=== PATIENT | female | born 1995 | race African-American/Black ===

== ENCOUNTER 2016-05-11 12:24 | Emergency (ER) | payer OTHER ==
[~2016-05-11] VITALS: Ht 175.3 cm; Wt 64.5 kg
[2016-05-11 12:27] VITALS: BP 123/80; PULSE 87; RESP 15; TEMP 98.2; O2SAT 98
--- NOTE | 2016-05-11 14:11 | PD ---
HPI Chief Complaint: Chest Pain Time Seen by Provider: 13:05 Travel History International Travel<30 days: No Contact w/Intl Traveler<30days: No Traveled to known affect area: No History of Present Illness HPI The patient was seen and examined in the presence of the nurse. This patient complains of pain in the left lower chest near her left breast. Duration 3 hours. Severity is mild. In fact is pretty much resolved by the time I see her in the ER. No shortness of breath or fever or productive cough. PFSH Past Medical History Medical History: Denies Significant Hx ?: Unknown Past Surgical History Surgical History: No Previous Surgery Social History Alcohol Use: No Tobacco Use: No Substance Use: No Allergies-Medications (Allergen,Severity, Reaction): Coded Allergies: Penicillin (Verified Allergy, Severe, Anaphylaxis, 05/11/16) I WILL Reported Meds & Prescriptions Reported Meds & Active Scripts Active No Active Prescriptions or Reported Medications Review of Systems General / Constitutional: No: Fever HENT: No: Headaches Cardiovascular: Positive: Chest Pain or Discomfort Physical Exam Narrative CARDIOVASCULAR: Regular rate and rhythm without murmur. Extremities showed no edema or varicosities. RESPIRATORY: Respiratory effort unlabored, no retractions or use of accessory muscles. Breath sounds are clear and symmetric. GASTROINTESTINAL: Abdomen soft, non-tender, nondistended. Positive bowel sounds. No hepato-splenomegaly, or palpable masses. No guarding. Data Data Last Documented VS Vital Signs Date Time Temp Pulse Resp B/P Pulse Ox O2 Delivery O2 Flow Rate FiO2 05/11/16 13:02 80 20 98 Room Air 05/11/16 12:27 98.2 123/80 Orders Electrocardiogram (05/11/16 ) [facility] Medical Decision Making Medical Screen Exam Complete: Yes Emergency Medical Condition: Yes Medical Record Reviewed: Yes Differential Diagnosis Costochondritis, pleurisy, GA Narrative Course I have reviewed the patient's electronic medical record. I reviewed her EKG which is normal This patient has readily reproducible musculoskeletal chest wall pain that is significantly improved Stable for outpatient follow-up Diagnosis Primary Impression: Musculoskeletal chest pain Additional Instructions: The patient was advised to follow up with their physician and return if they worsen. Med/Other Pt SpecificInfo: Other Scripts No Active Prescriptions or Reported Meds Disposition: 01 DISCHARGE HOME Condition: Stable Brock Harkins MD May 11, 2016 14:11
--- NOTE | 2016-05-12 13:00 | EKG ---
Date Performed: 05/11/2016 Time Performed: 12:55:52 PTAGE: 20 years EKG: Sinus rhythm NORMAL ECG NO PREVIOUS TRACING DOCTOR: Lambert Cline Interpretating Date/Time 05/12/2016 12:58:40
== END 2016-05-11 14:46 | disposition home or self-care (01) ==
LOC: NEPD 12:24
DX: R07.89 Other chest pain (principal)
CPT/HCPCS: 93005